=== PATIENT | male | born 1955 | race Caucasian/White ===

== ENCOUNTER 2019-03-21 09:29 | Emergency (ER) | payer BC ==
[~2019-03-21] VITALS: Ht 172.7 cm; Wt 74.8 kg
[~2019-03-21 09:29] MED LIST: ALBU8.5H8 IH; ASPI81TA31 PO; LEVOTHYROXINE PO; LOSARTAN PO
--- NOTE | 2019-03-21 09:46 | NUR ---
Patient ambulated with stable gait. A/Ox4. Patient came for c/o left toe nail injury from stubbing his foot last night. The toenail is split and blood underneath nail noted. Patient denies any radiating pain, and is loacalized on the left toenail area.
[2019-03-21] MEDS ORDERED: NEOMY/BACITRA/POLYMYXIN B OINT UD PACKET TP ONE ×2 (10:30→10:31)
--- NOTE | 2019-03-21 10:39 | NUR ---
Patient discharged to home in stable conditon. Written and verbal after care instructions given. Patient verbalizes understanding of instructions. Patient ambulated with stable gait.
[2019-03-21 10:40] VITALS: BP 120/80
== END 2019-03-21 10:40 | disposition home or self-care (01) ==
LOC: ER 09:29
DX: S90.212A Contusion of left great toe with damage to nail, initial encounter (principal); I10 Essential (primary) hypertension; J45.909 Unspecified asthma, uncomplicated; Z90.89 Acquired absence of other organs; Z79.82 Long term (current) use of aspirin; Z79.899 Other long term (current) drug therapy; W22.01XA Walked into wall, initial encounter; Y93.89 Activity, other specified; Y92.89 Other specified places as the place of occurrence of the external cause; Y99.8 Other external cause status
CPT/HCPCS: 73660; A4217; A4663

== ENCOUNTER 2022-06-23 12:22 | Emergency (ER) | payer BC ==
[~2022-06-23] VITALS: Ht 172.7 cm; Wt 77.1 kg
[2022-06-23] MEDS ORDERED: TETRACAINE HCL 0.5% OPHT DROP 2 ML BOTTLE ONE (12:40)
[2022-06-23] MEDS ORDERED: FLUORESCEIN SODIUM 1 MG STRIP ONE (12:40)
[2022-06-23] MEDS ORDERED: FLUORESCEIN SODIUM 1 MG STRIP OP ONE (12:45)
[2022-06-23] MEDS ORDERED: TETRACAINE HCL 0.5% OPHT DROP 2 ML BOTTLE OP ONE (12:45)
--- NOTE | 2022-06-23 12:45 | NUR ---
PT IS IN ROOM #2A. DR WALKER EVALUATED THE PT.
--- NOTE | 2022-06-23 13:54 | NUR ---
PT WAS D/C'd TO HOME. D/C INSTRUCTIONS GIVEN TO THE PT BY DR WALKER.
[2022-06-23 13:55] VITALS: BP 136/77
== END 2022-06-23 13:56 | disposition home or self-care (01) ==
LOC: ER 12:22
DX: H10.213 Acute toxic conjunctivitis, bilateral (principal); Z77.098 Contact with and (suspected) exposure to other hazardous, chiefly nonmedicinal, chemicals; J45.909 Unspecified asthma, uncomplicated
CPT/HCPCS: 99284; J7040; A4663

== ENCOUNTER 2024-05-10 10:34 | Emergency (ER) | payer BC ==
[~2024-05-10] VITALS: Ht 172.7 cm; Wt 77.1 kg
[2024-05-10] MEDS: IPRATROPIUM BROMIDE 0.5 MG/2.5 ML NEBU NEB ONE (11:19)
[2024-05-10] MEDS: ALBUTEROL SULFATE 2.5 MG/3 ML NEBU NEB ONE (11:19)
[2024-05-10 11:20] VITALS: O2SAT 99
[2024-05-10] MEDS ORDERED: IPRATROPIUM BROMIDE 0.5 MG/2.5 ML NEBU ONE (11:22)
[2024-05-10] MEDS ORDERED: ALBUTEROL SULFATE 2.5 MG/3 ML NEBU ONE (11:22)
[2024-05-10] MEDS ORDERED: ALBU18HF2 INH (11:58)
[2024-05-10] MEDS ORDERED: DOXY-326 PO (11:58)
[2024-05-10] MEDS ORDERED: FLUT12AE20 INH (11:58)
[2024-05-10 12:20] VITALS: O2SAT 100
[2024-05-10 13:07] VITALS: BP 138/79; TEMP 97.9; O2SAT 100
== END 2024-05-10 13:09 | disposition home or self-care (01) ==
LOC: ER 10:49
DX: J40 Bronchitis, not specified as acute or chronic (principal); Z79.51 Long term (current) use of inhaled steroids; Z79.82 Long term (current) use of aspirin; Z90.89 Acquired absence of other organs; Z88.7 Allergy status to serum and vaccine
CPT/HCPCS: 94760; A4606; A4663; J3590